=== PATIENT | female | born 2000 | race Caucasian/White ===

== ENCOUNTER 2025-06-19 21:40 | Emergency (ER) | payer MEDICAID ==
[~2025-06-19] VITALS: Ht 165.1 cm; Wt 59.0 kg
[2025-06-19 22:02] VITALS: O2SAT 100
[2025-06-19] MEDS: LIDOCAINE 5% PATCH TOP STA (23:21)
[2025-06-19] MEDS: IBUPROFEN 800MG TABLET PO ONE (23:22)
[2025-06-20] MEDS ORDERED: IBUP-2030 MT (01:35)
[2025-06-20] MEDS ORDERED: CYCL10TA21 MT (01:35)
[2025-06-20] MEDS ORDERED: LIDO700A30 TP (01:35)
[2025-06-20 01:40] VITALS: BP 109/66; PULSE 78; RESP 17; TEMP 36.8; O2SAT 100
== END 2025-06-20 01:40 | disposition home or self-care (01) ==
LOC: ER 21:40
DX: M54.50 Low back pain, unspecified (principal); M25.551 Pain in right hip
CPT/HCPCS: 72131; 72192; 73502; 99285